=== PATIENT | female | born 2005 | race Caucasian/White ===

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

== ENCOUNTER 2025-07-25 20:44 | Emergency (ER) | payer OTHER, SELFPAY ==
--- NOTE | ~2025-07-25 | XR_ITS ---
CLINICAL HISTORY: constipation 1 view abdomen Comparison: None provided Findings: No pneumoperitoneum or pneumatosis. No abnormal calcifications. Mild colonic stool burden. No acute fractures. IMPRESSION: Mild colonic stool burden. This document has been electronically signed by: Berta Donnelly MD on 07/25/2025 22:45:15
--- NOTE | ~2025-07-25 | US_ITS ---
CLINICAL HISTORY: R adnexal pain r o torsion US pelvis transabdominal and transvaginal with Doppler Comparison: None provided Findings: Transabdominal scanning performed for overall anatomy. Transvaginal scanning performed for additional detail. Uterus measures 6.6 x 1.9 x 3.2 cm. There is no uterine mass. Endometrium is within normal limits measuring 1 mm in thickness. Right ovary measures 2.9 x 2.5 x 2.4 cm. There are small right ovarian follicles. There is no right adnexal mass or fluid collection. There is normal color Doppler and arterial/venous spectral tracings within the right ovary. Left ovary measures 2.5 x 2.7 x 2.1 cm. There are small left ovarian follicles. There is no left adnexal mass or fluid collection. There is normal color Doppler and arterial/venous spectral tracings within the left ovary. There is no free fluid in the pelvis. IMPRESSION: Unremarkable pelvic ultrasound. This document has been electronically signed by: Abelardo Jhaveri MD on 07/25/2025 23:46:33
[2025-07-25 20:47] VITALS: BP 113/56; PULSE 91; RESP 20; TEMP 36.7; O2SAT 100; BMI 33.2
[2025-07-25 21:38] LABS: MANUAL DIFF FLAG NO
[2025-07-25 21:39] LABS: Hematocrit 45.0 % (37.0-47.0); Hemoglobin 14.8 g/dl (12.0-16.0); Imm Gran Abs Auto 0.01 X10*3/uL (0.00-0.03); Imm Gran Pct Auto 0.1 % (0.0-0.4); Lymphocytes Absolute Auto 2.9 X10*3/uL (1.2-4.9); Mean Corpuscular HGB Conc 32.9 g/dl (31.0-35.0); Mean Corpuscular Hemoglobin 28.8 pg (27.0-33.0); Mean Corpuscular Volume 87.5 fL (80.0-98.0); NRBC Abs Auto 0.000 X10*3/uL (0.0-0.012); NRBC Pct Auto 0.0 /100WBC (0.0-0.2); Platelet Count 273 X10*3/uL (160-400); Red Blood Count 5.14 X10*6/uL (4.20-5.50); White Blood Count 9.0 X10*3/uL (4.8-10.8)
[2025-07-25 21:42] LABS: Appearance Urine Clear; Glucose Urine UA Negative (Negative); PH 5.5 (5.0-9.0); Specific Gravity - Urine 1.025 (1.005-1.025)
[2025-07-25 21:58] LABS: Alanine Aminotransferase 22 U/L (0-31); Albumin Level 5.1 g/dL (3.5-5.0); Alkaline Phosphatase 70 U/L (39-117); Anion Gap 10 (12-20); Aspartate Amino Transferase 25 U/L (5-31); Blood Urea Nitrogen 13 mg/dL (9-16); Calcium 9.7 mg/dL (8.4-10.2); Carbon Dioxide 27 mmol/L (22-29); Chloride 106 mmol/L (96-108); Creatinine Clr Calc Pharmacy 123.3; Estimated Glomerular Filt Rate > 60; Lipase 31 U/L (8-78); Potassium 3.3 mmol/L (3.3-5.1); Sodium 140 mmol/L (135-145); Total Protein 7.9 g/dL (6.5-8.0)
[2025-07-25 22:16] LABS: Resp Syncy Virus RNA Qual PCR NEGATIVE (Negative); SARS COV2 PCR INHOUSE NEGATIVE (Negative)
--- NOTE | 2025-07-25 22:22 | ED.ABDPAIN ---
HPI - Abdominal Pain General Chief Complaint: Abdominal Pain Stated Complaint: CRAMP Time Seen by Provider: 07/25/25 22:11 Source: patient Mode of arrival: ambulatory Limitations: no limitations History of Present Illness ED Provider: Dr. Li Velez HPI narrative: 20-year-old previously healthy female presents with constant lower abdominal pain that began three weeks ago, shortly after Thanksgiving. Initially associated with constipation; she took magnesium which produced a bowel movement and transient improvement. Bowel habits since have fluctuated?some days no stool, other days up to three bowel movements. Today had a soft, orange-tinted stool normal consistency, sfot. Current pain began as a cramp under the umbilicus, shifted to the right side, and is now rated 9/10 (8.5/10 on arrival). Pain is constant in the abdomen but intermittently radiates to the lower back. She has taken no analgesics due to concern about masking symptoms. Associated symptoms: intermittent nausea since a few days after Thanksgiving, chills without documented fever, amenorrhea x 5 months. Denies vomiting in last 24 h, dysuria, hematuria, vaginal bleeding, or abnormal vaginal discharge (reports normal physiologic discharge). 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 Prior transabdominal pelvic US ~1?1.5 years ago reportedly normal. No prior abdominal surgeries; appendix intact. Never . No drug allergies. Related Data Previous Rx's ?Medication ?Instructions ?Recorded erythromycin 5 mg/gram (0.5 %) eye 0.5 inch ophthalmic (eye) Q4H #3.5 05/01/22 ointment grams dicyclomine 20 mg tablet 20 mg PO TID #10 tabs 07/26/25 ibuprofen 600 mg tablet 600 mg PO Q8H PRN fever or pain 07/26/25 #30 tabs polyethylene glycol 3350 17 17 g PO DAILY #119 grams 07/26/25 gram/dose oral powder (Miralax) Allergies Allergy/AdvReac Type Severity Reaction Status Date / Time No Known Allergies Allergy Verified 07/25/25 20:50 Review of Systems Review of Systems as per HPI, full review of systems performed and negative but for the above mentioned pertinent positives and negatives. [facility] Social History Social History Alcohol intake: current Smoked in Last 30 Days: Yes Use of substances other than those prescribed or required for medical reasons: Yes Substance Use Type: Marijuana Advance Directives: No Advance Directives Information Provided: No Patient : No Physical Exam ED Exam Exam: GENERAL: Well-Appearing, conversant, no acute distress. SKIN: Normal skin color for ethnicity, warm, dry, no rashes noted. HEENT:? Normocephalic, atraumatic, no stridor, posterior oropharynx nonerythematous, dentition intact, EOMI. NECK: Soft, supple, full ROM, midline structures nontender, no step-offs, no deformities, no lymphadenopathy. CHEST: Heart regular rate and rhythm, no murmurs, symmetric chest rise and fall. PULMONARY: Clear to auscultation bilaterally, no labored breathing, no wheezes/rhales/rhonchi. ABDOMINAL: Soft, nondistended, bilateral adnexal tenderness to palpation with voluntary guarding, positive bowel sounds in all quadrants. : Deferred. MUSCULOSKELETAL: Normal tone, full range of motion, no deformities, no peripheral edema. NEURO: Alert and oriented x3, CN II through XII intact, equal strength and sensation bilateral upper and lower extremities, no focal neurologic deficits.? PSYCHIATRIC: Normal affect, fluid speech, good eye contact and appropriate demeanor. Vital Signs: Vital Signs - 24 hr 07/25/25 20:47 07/25/25 23:24 Temperature 98.1 F Pulse Rate 91 70 Respiratory Rate 20 18 Blood Pressure 113/56 L 104/55 L Pulse Oximetry 100 98 Oxygen Delivery Method Room Air Room Air BMI result Body Mass Index 33.2 Medical Decision Making Medical Decision Making MDM Narrative: 20-year-old female with 3-week history of constant lower abdominal pain, intermittent constipation, amenorrhea, and lower abdominal tenderness. Differential diagnosis is broad and would include ovarian torsion or cyst related to PCOS, PID, TOA, if ectopic , pyelonephritis, kidney stone, UTI, less likely appendicitis given duration and reassuring labs, among many others. A broad-based workup based on history and physical exam was obtained. Problem #1: Abdominal pain, undifferentiated Assessment: Constant lower abdominal pain with bilateral lower quadrant tenderness, no fever, normal labs. Need to exclude gynecologic causes. Plan: - Administer analgesia in ED (medication given ? specifics not recorded in transcript). - Pelvic ultrasound (transvaginal preferred) to evaluate ovaries and blood flow, rule out torsion. - Monitor symptoms; patient instructed to report increased pain, fever, or worsening nausea immediately while in ED. Problem #2: Constipation Assessment: Intermittent constipation since Thanksgi; bowel movements fluctuate. Current stool soft without impaction on imaging. Plan: - Patient previously used magnesium with partial relief. - initiate bowel regimen Problem #3: Amenorrhea / PCOS Assessment: Amenorrhea for 5 months in setting of known PCOS; last pelvic US ~1 year ago normal. Plan: - Pelvic ultrasound will also provide updated assessment of ovaries in context of PCOS. - Counseled patient that transvaginal imaging offers superior visualization. Disposition pending ultrasound results and response to therapy. Patient was given ibuprofen and dicyclomine for pain control. Symptoms improved dramatically. Imaging does not show evidence of ovarian torsion. X-ray does not show any sign of calcifications or significant stool impaction. Suspect gas pain/perhaps early menstrual cramping. Using shared decision making, plan for discharge home to follow-up with primary care and/or specialist. Patient understands and agrees with plan for discharge. Discharged home in stable condition. Differential Diagnosis Differential Diagnoses: The differential diagnosis associated with the presentation includes (As above) Admission/Observation Consideration of admission/observation: Escalation of care including admission/observation considered Lab Data MDM Lab Attestation statement: I reviewed the patient's lab results. 07/25/25 21:30 07/25/25 21:30 Labs: Lab Results 07/25/25 Range/Units 21:30 WBC 9.0 (4.8-10.8) X10*3/uL RBC 5.14 (4.20-5.50) X10*6/uL Hgb 14.8 (12.0-16.0) g/dl Hct 45.0 (37.0-47.0) % MCV 87.5 (80.0-98.0) fL MCH 28.8 (27.0-33.0) pg MCHC 32.9 (31.0-35.0) g/dl RDW 12.4 (11.0-16.0) % Plt Count 273 (160-400) X10*3/uL MPV 9.5 (9.4-12.3) fL Immature Gran % (Auto) 0.1 (0.0-0.4) % Neut % (Auto) 61.1 (45-73) % Lymph % (Auto) 32.4 (20-40) % Bledsoe % (Auto) 5.6 (2-11) % Eos % (Auto) 0.7 (0-4) % Baso % (Auto) 0.1 (0-2) % Lymph # (Auto) 2.9 (1.2-4.9) X10*3/uL B[place]soe # (Auto) 0.5 (0.1-1.2) X10*3/uL Eos # (Auto) 0.1 (0.0-0.4) X10*3/uL Baso # (Auto) 0.0 (0.0-0.2) X10*3/uL Abs Immat Gran (auto) 0.01 (0.00-0.03) X10*3/uL Absolute Neuts (auto) 5.5 (2.0-8.3) x10*3/uL Absolute Nucleated RBC 0.000 (0.0-0.012) X10*3/uL Nucleated RBC % (auto) 0.0 (0.0-0.2) /100WBC Sodium 140 (135-145) mmol/L Potassium 3.3 (3.3-5.1) mmol/L Chloride 106 (96-108) mmol/L Carbon Dioxide 27 (22-29) mmol/L Anion Gap 10 L (12-20) BUN 13 (9-16) mg/dL Creatinine 0.78 (0.5-1.4) mg/dL Estim Creat Clear Calc 123.3 Estimated GFR > 60 Random Glucose 104 (60-115) mg/dL Calcium 9.7 (8.4-10.2) mg/dL Total Bilirubin 0.3 (0.0-1.0) mg/dL AST 25 (5-31) U/L ALT 22 (0-31) U/L Alkaline Phosphatase 70 (39-117) U/L Total Protein 7.9 (6.5-8.0) g/dL Albumin 5.1 H (3.5-5.0) g/dL Lipase 31 (8-78) U/L Beta HCG, Quant < 2 mIU/mL Urine Color Yellow Urine Appearance Clear Urine pH 5.5 (5.0-9.0) Ur Specific [place] 1.025 (1.005-1.025) Urine Protein Negative (Neg-Trace) mg/dL Urine Glucose (UA) Negative (Negative) mg/dL Urine Ketones Trace (Negative) mg/dL Urine Blood Negative (Negative) Urine Nitrite Negative (Negative) Ur Leukocyte Esterase Negative (Negative) Influenza Type A (PCR) NEGATIVE (Negative) Influenza Type B (PCR) NEGATIVE (Negative) RSV RNA Qual (PCR) NEGATIVE (Negative) SARS-CoV-2 RNA (RT-PCR) NEGATIVE (Negative) Radiology Impression Discussion of test interpretation with radiology: I have reviewed the radiologist's reading. Independent Historian Clinical information obtained from an independent historian. History obtained from or confirmed by: Spouse External Record Review External record reviewed: Inpatient record Prescription Management I considered prescription management with: Pain Medication and Other (Laxatives) Chronic Conditions Patient?s care impacted by: Other (PCOS) Social Determinants Patient?s care significantly limited by Social Determinants of Health including: Other Social Determinant of Health Medications Administered Discontinued Medications Generic Name Dose Route Start Last Admin Trade Name Saida PRN Reason Stop Dose Admin Dicyclomine HCl 20 mg 07/25/25 23:29 07/25/25 23:37 Dicyclomine Hcl 10 Mg Capsule PO 07/25/25 23:30 20 mg ONCE ONE Administration Ibuprofen 600 mg 07/25/25 23:29 07/25/25 23:37 Ibuprofen 600 Mg Tablet PO 07/25/25 23:30 600 mg ONCE ONE Administration Ondansetron HCl 4 mg 07/25/25 23:29 07/25/25 23:37 Ondansetron Odt 4 Mg Tab.Rapdis TRANSLINGU 07/25/25 23:30 4 mg ONCE ONE Administration Discharge Plan Discharge Clinical Impression: Constipation, Acute suprapubic pain, History of PCOS Patient Disposition: Home, Self-Care Instructions: Constipation (ED), Pelvic Pain in Women (ED) Additional Instructions: Constipation Remedy 1 Lb prunes 1 Lb pitless dates 1 Lb raisins 16 teabags Smooth Move tea brewed in 2 cups water 1 Cup brown sugar 1 Cup lemon juice Mix in a feed blender Put in freezer (never completely freezes) Can be used as a spread on crackers, toast, etc. (about 1-2 tablespoons per dose) DIAGNOSIS & TREATMENT: You were seen in the Emergency Department for your abdominal pain. We performed laboratory work and an ultrasound of your pelvis which did not reveal any acute abnormalities that would explain your symptoms. FURTHER CARE: We have not found any emergent physical exam or lab abnormalities that would require admission to the hospital today. Many people who come to the ER with abdominal pain do not leave with a specific diagnosis at the end of their visit. In the Emergency Department we try to make sure that there is no emergent problem that needs surgery or antibiotics right now. This does not mean that your evaluation is complete--please be sure to follow up with your regular doctor as additional testing as an outpatient may be indicated Please be certain to drink plenty of fluids over the next several. You should advance your diet as tolerated. You may wish to start with the BRAT diet (bananas, rice, applesauce, toast). WHEN YOU SHOULD BE SEEN NEXT: Please follow-up with your primary care provider within the next 2-3 days for reevaluation of your symptoms. WHEN TO RETURN TO THE ED: Monitor your symptoms closely and return to the emergency department immediately for any new/worsening symptoms, worsening abdominal pain, pain which changes location (particularly if it moved to the right lower quadrant), nausea, vomiting, blood in your stool, black/tarry stools, chest pain, shortness of breath, fevers, chills, night sweats, you are unable to arrange follow-up care, or any other concerning symptoms. Prescriptions: New dicyclomine 20 mg tablet 20 mg PO TID Qty: 10 0RF ibuprofen 600 mg tablet 600 mg PO Q8H PRN (Reason: fever or pain) Qty: 30 0RF polyethylene glycol 3350 [Miralax] 17 gram/dose powder 17 g PO DAILY Qty: 119 0RF No Action erythromycin 5 mg/gram (0.5 %) ointment 0.5 inch ophthalmic (eye) Q4H Qty: 3.5 0RF Print Language: Azerbaijani
--- OUTSIDE RECORDS SUMMARY | 2025-07-25 22:55 | XMS_ITS | Clinical Summary ---
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 Do not crush or chew. 12 capsule 08/07/2024 Active Active Problems No known active problems Family History Medical History Relation Name Comments Breast cancer Neg Hx Cancer of Small Bowel Neg Hx Colon cancer Neg Hx Kidney cancer Neg Hx Ovarian cancer Neg Hx Pancreatic cancer Neg Hx Uterine cancer Neg Hx Social History Tobacco Use Types Packs/Day Years Used Date Smoking Tobacco: Some Days Smokeless Tobacco: Current Tobacco Cessation:Ready to Q uit: Not Asked; Counseling Given: Not Answered Alcohol Use Standard Drinks/Week Comments Yes 0 (1 standard drink = 0.6 oz pur e alcohol) Comments Unknown Sex and Gender Information Value Date Recorded Sex Assigned at Not on file Legal Sex Female 9:08 AM EST Gender Identity Not on file Sexual Orientation Not on file Last Filed Vital Signs Vital Sign Reading Time Taken Comments Blood Pressure 87/51 03/17/2025 9:47 AM EDT Pulse 61 03/17/2025 9:47 AM EDT Temperature 36.2 C (97.2 F) 08/07/2024 11:19 AM EST Respiratory Rate 13 03/17/2025 9:47 AM EDT Oxygen Saturation 98% 08/07/2024 11:19 AM EST Inhaled Oxygen Concentration - - Weight 88.5 kg (195 lb) 03/17/2025 9:47 AM EDT Height 162.6 cm (5' 4 ) 03/17/2025 9:47 AM EDT Body Mass Index 33.47 03/17/2025 9:47 AM EDT Plan of Treatment Upcoming Encounters Date Type Department Care Team (Late st Contact Info) Description 08/25/2025 9:00 AM EST Office Visit Endocrinology - [place] [address] [place] [address] Maribell Salcido PA [address] [place] [address] Health Maintenance Due Date Last Done Comments Pneumococcal Vaccine: Pediatrics (0 to 5 Years) and At-Risk Patients (6 to 49 Years) (1 of 1 - PPSV23, PCV20, or PCV21) 2011 04/15/2006, 2005, 2005, Additional history exists Meningococcal B Vaccine (1 of 2 - Standard) 2021 HIV Screening 09/09/2023 Hepatitis C Screening 09/09/2023 Social Influencers of Health Screening 09/09/2023 Depression Screening 08/11/2024 Gonorrhea/Chlamydia Screening 09/11/2024 09/11/2023 Annual Well Child Visit (3-21 years old) 11/16/2024 11/17/2023, 09/11/2023, 06/17/2022, Additional history exists COVID-19 Vaccine (1 - 2024- season) 2025 Influenza Vaccine (#1) 2025 , 06/17/2022, 05/16/2021, Additional history exists Cholesterol Screening (Lipid Panel) 12/09/2025 12/09/2020 DTaP,Tdap,and Td Vaccines (7 - Td or Tdap) 08/23/2026 08/23/2016, 10/25/2009, 07/21/2006, Additional history exists RSV Immunization Adult Patients (1 - 1-dose 75+ series) 01/06/2080 Hepatitis B Vaccines Completed 2005, 2005, 2005, Additional history exists HIB Vaccines Completed 04/15/2006, 01/2005, 2005, Additional history exists IPV Vaccines Completed 10/25/2009, 01/2005, 2005, Additional history exists MMR Vaccines Completed 10/25/2009, 01/07/2006 Varicella Vaccines Completed 10/25/2009, 01/07/2006 HPV Vaccines Completed 04/04/2020, 07/30/2019 Hepatitis A Vaccines Completed 05/16/2021, 04/04/20 Meningococcal ACWY Vaccine Completed 05/16/2021, RSV Immunization Patients Under 20 months Aged Out No longer eligible based on patient's age to complete this topic Procedures Procedure Name Priority Date/Time Associated Diagnosis Comments GONORRHEA/CHLAMYDIA SCRREENING Routine 09/11/2023 from Last 3 Months or Most Recently Relevant to Health Maintenance Results * Gonorrhea/Chlamydia Screening (09/11/2023) HM Gonorrhea/Chla mydia Screening Abstracted us Historical Provider MD HEALTH MAINTENANCE Final Result from Last 3 Months or Most Recently Relevant to Health Maintenance Insurance [facility] [employer] Care Teams 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
--- OUTSIDE RECORDS SUMMARY | 2025-07-25 22:55 | XMS_ITS | Data Portability ---
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 Plan of Treatment Reminders Order Date Submit Date Provider Last Modified By Organization Details Last Modified Time Details Appointments None recorded. Lab urinalysis, dipstick 2023 024 [email or web address] [address], [address] [place], [address], 17:17:52 Referral None recorded. Procedures None recorded. Surgeries None recorded. Imaging None recorded. Medication Orders ondansetron 4 mg disintegrat ing tablet [address] [facility]/Pharmacy #[id number], [address] [place], [address], 17:17:54 famotidine 20 mg tablet [address]23 [address] [facility]/Pharmacy #[id number], [address] [place], [address], 17:17:54 Patient TargetsNo targets recorded. Patient Instructions Encounter Date Encounter Id Patient Instructions Last Modified By Organization Details Last Modified Time 02/14/2024 [id number] nausea and vomiting: care instructions [email or web address] Not available 02/14/2024 17:17:52 Try small amount s of clear liquids frequently. If vomiting occurs, wait 30-60 minutes before trying clear liquids again. Once you are able to tolerate clear liquids for at least 6 hours without vomiting, you can advance to a soft diet consisting of foods such as bananas, rice, applesauce, toast, crackers, and other foods rich in carbohydrates and low on fats and spices. If the diet is tolerated for 12-24 hours, you can slowly add other foods to your diet. If vomiting occurs, you should go back to clear liquids only and work your way back to a normal diet as outlined above. If much worse, you should seek treatment immediately. Not available 02/14/2024 16:57:20 Reason for Referral None Reported. Results Created Date Observation Date Name Description Value Unit Range Abnormal Flag Note LastModifiedBy Organization Detail LastModifiedTime 02/14/20 24 02/14/2024 urina lysis , dipst ick Unknown Analyte Normal = light yellow Not Available [address] [place], [address], 02/14/2024 17:05:09 02/14/20 24 02/14/2024 urina lysis , dipst ick Unknown Analyte Normal = clear Not Available [address] [place], [address], 02/14/2024 17:05:09 02/14/20 24 02/14/2024 urina lysis , dipst ick Unknown Analyte Normal = negati ve Not Available [address] [place], [address], 02/14/2024 17:05:09 02/14/20 24 02/14/2024 urina lysis , dipst ick Unknown Analyte Normal = Negati ve Not Available [address] [place], [address], 02/14/2024 17:05:09 02/14/20 24 02/14/2024 urina lysis , dipst ick Unknown Analyte Normal = Negati ve Not Available [address] [place], [address], 02/14/2024 17:05:09 02/14/20 24 02/14/2024 urina lysis , dipst ick Unknown Analyte Normal = 1.010, 1.015, 1.020 Not Available [address] [place], [address], 02/14/2024 17:05:09 02/14/20 24 02/14/2024 urina lysis , dipst ick Unknown Analyte Normal = Negati ve Not Available [address] [place], [address], 02/14/2024 17:05:09 02/14/20 24 02/14/2024 urina lysis , dipst ick Unknown Analyte Normal = 6.5, 7.0, 7.5, 8.0 Not Available [address] [place], [address], 02/14/2024 17:05:09 02/14/20 24 02/14/2024 urina lysis , dipst ick Unknown Analyte Normal = Negati ve Not Available [address] [place], [address], 02/14/2024 17:05:09 02/14/20 24 02/14/2024 urina lysis , dipst ick Unknown Analyte Normal = 0.2, 1.0 Not Available [address] [place], [address], 02/14/2024 17:05:09 02/14/20 24 02/14/2024 urina lysis , dipst ick Unknown Analyte Normal = Negati ve Not Available [address] [place], [address], 02/14/2024 17:05:09 02/14/20 24 02/14/2024 urina lysis , dipst ick Unknown Analyte Normal = Negati ve Not Available [address] [place], [address], 02/14/2024 17:05:09 02/14/20 24 02/14/2024 urina lysis , dipst ick Unknown Analyte Negati ve Not Available [address] [place], [address], 02/14/2024 17:05:09 02/14/20 24 02/14/2024 urina lysis , dipst ick Unknown Analyte Negati ve Not Available [address] [place], [address], 02/14/2024 17:05:09 02/14/20 24 02/14/2024 urina lysis , dipst ick Unknown Analyte Yellow Not Available [address] [place] [address] [address] [place], [address], 02/14/2024 17:05:09 02/14/2002/14/2024 urina lysis , dipst ick Unknown Analyte Clear Not Available [address] [place] [address] [address] [place], [address], 02/14/2024 17:05:09 02/14/20 24 02/14/2024 urina lysis , dipst ick Unknown Analyte Negati ve Not Available [address] [place], [address], 02/14/2024 17:05:09 02/14/20 24 02/14/2024 urina lysis , dipst ick Unknown Analyte 1.025 Not Available [facility] [address] [place], [address], 02/14/2024 17:05:09 02/14/20 24 02/14/2024 urina lysis , dipst ick Unknown Analyte Small Not Available [address] [facility] [address] [place], [address], 02/14/2024 17:05:09 02/14/20 24 02/14/2024 urina lysis , dipst ick Unknown Analyte 7.0 Not Available [address] [place] [address] [address] [place], [address], 02/14/2024 17:05:09 02/14/20 24 02/14/2024 urina lysis , dipst ick Unknown Analyte Negati ve Not Available [address] [place], [address], 02/14/2024 17:05:09 02/14/20 24 02/14/2024 urina lysis , dipst ick Unknown Analyte 1.0 E.U./d L Not Available [address] [place], [address], 02/14/2024 17:05:09 02/14/20 24 02/14/2024 urina lysis , dipst ick Unknown Analyte Negati ve Not Available [address] [place], [address], 02/14/2024 17:05:09 02/14/20 24 02/14/2024 urina lysis , dipst ick Unknown Analyte Negati ve Not Available [address] [place], [address], 02/14/2024 17:05:09 Result Notes None recorded. Problems No Known Problems Medical Equipment None Reported. Medications Name Sig Start Date Stop Date Status Note LastModified by Organization Details LastModified Time amoxicillin 500 mg capsule TAKE 1 CAPSULE BY MOUTH 3 TIMES A DAY UNTIL FINISHED 02/13 completed Not Available Not Available Not Available nicotine (polacrilex ) 2 mg gum CHEW 1 EACH (2 MG TOTAL) NEEDED FOR SMOKING CESSATION . 02/13 completed Not Available Not Available Not Available benzonatate 200 mg capsule TAKE 1 CAPSULE BY MOUTH 3 TIMES A DAY NEEDED FOR COUGH NOT COVERED 02/13 completed Not Available Not Available Not Available acetaminoph en 500 mg tablet TAKE 1 TABLET BY MOUTH EVERY 4-6 HOURS NEEDED FOR FEVER OR PAIN 02/13 completed Not Available Not Available Not Available famotidine 20 mg tablet Take 1 tablet twice a day by oral route for 14 days. 2023 active Not Available Not Available Not Avai lable trazodone 100 mg tablet TAKE 1 TABLET BY MOUTH EVERY DAY AT NIGHT 02/13 completed Not Available Not Available Not Available benzonatate 100 mg capsule TAKE 1 CAPSULE BY MOUTH THREE TIMES A DAY NEEDED FOR COUGH 02/13 completed Not Available Not Available Not Available ibuprofen 400 mg tablet TAKE 1 TO 2 TABLETS BY MOUTH EVERY 6 TO 8 HOURS NEEDED FOR PAIN 02/13 completed Not Available Not Available Not Available nicotine 21 mg/24 hr daily transdermal patch APPLY ONE PATCH TO SKIN DAILY FOR 6 WEEKS 02/13 completed Not Available Not Available Not Available ibuprofen 600 mg tablet TAKE 1 TABLET BY MOUTH EVERY 6-8 HOURS NEEDED FOR PAIN 02/13 completed Not Available Not Available Not Available ondansetron 4 mg disintegrat ing tablet Place 1 tablet 3 times a day by transling ual route for 5 days. 2023 active Not Available Not Available Not Avai lable duloxetine 60 mg capsule,del ayed release TAKE 1 CAPSULE BY MOUTH EVERY DAY 02/13 completed Not Available Not Available Not Available duloxetine 40 mg capsule,del ayed release TAKE 1 CAPSULE BY MOUTH EVERY DAY 02/13 completed Not Available Not Available Not Available Vitals Date Recorded Body height Body mass index (BMI) [Percentile] Per age and sex Body mass index (BMI) Body weight Respiratory rate Pain severity - 0-10 verbal numeric rating [Score] - Reported Oxygen saturation Heart rate Body temperature Systolic And Diastolic Provider Name and Address Organization Details Last Updated DateTime 162.56 cm 95 % 30.9 kg/m2 43482.6 3 g 18 /min 8 98 % 103 /min 98.1 [degF] 100/67 mm[Hg] Nadia aY PA - [facility] 17:04:57 Social History Question Answer Notes LastModified by Organizat ion Details LastModified Time Tobacco Smoking Status Never Smoker Nadia tijerina PA - [facility] 02/14/2024 17:01:58 What Is The Highest Grade Or Level Of School You Have Completed Or The Highest Degree You Have Received? [id number] [email or web address] Information not available 02/14/2024 Have You Had A Flu Shot This Season? Yes [email or web address] Information not available 02/14/2024 If No, Would You Like A Flu Shot Today? No [email or web address] Information not available 02/14/2024 Have You Had Direct Contact, Or Contact During Intimacy, With Monkeypox Rash, Scabs, Or Body Fluids From A Person With Monkeypox? No [email or web address] Information not available 02/14/2024 What Was The Date Of Your Most Recent Tobacco Screening? 02/14/2024 [email or web address] Information not available 02/14/2024 Have You Recently Traveled Abroad? No [email or web address] Information not available 02/14/2024 Are You Currently In School? No [email or web address] Information not available 02/14/2024 Sex: Unknown Functional Status Question Answer Note LastModified by Organizat ion Details LastModified Time How many times per week do you consume alcohol? Less than 1 time per week [email or web address] Information not available 02/14/2024 Do you use any illicit or recreational drugs? No [email or web address] Information not available 02/14/2024 Do you or have you ever used any other forms of tobacco or nicotine? Yes [email or web address] Information not available 02/14/2024 What is your level of alcohol consumption? Occasional [email or web address] Information not available 02/14/2024 Do you or have you ever used smokeless tobacco? Never used smokeless tobacco [email or web address] Information not available 02/14/2024 Are you currently employed? Yes [email or web address] Information not available 02/14/2024 Do you or have you ever used e-cigarettes or vape? Current user of electronic cigarettes Information not available 02/14/2024 Mental Status None recorded. Family History Relationship Description Onset Age of this Age Resolved Age Notes LastModified by Organization Details LastModified Time Father No current problems or disability [email or web address] Not available 01/2024 17:01:15 Mother No current problems or disability [email or web address] Not available 01/2024 17:01:15 Medical History No medical history recorded. Gynecological History Statement/Question Response Date of LMP 02/07/2024 Is there any chance of ? No LMP Approximate Obstetrics History GPAL:G 0 P 0 0 0 0 Past Encounters Encounter ID Performer Location Encounter Start Date Encounter Closed Date Diagnosis/Indication Diagnosis SNOMED-CT Code Diagnosis ICD10 Code Diagnosis IMO Codes Diagnosis Note [id number] [facility] [address] [place] [address] 10/19/2021 10:23:06 10/19/2021 11:55:05 [id number] [facility] [address] [place] [address] 01/18/2022 09:21:24 01/18/2022 10:24:57 [id number] [facility] [facility] [address] [place] [address] 11/01/2021 15:26:14 11/01/2021 17:11:48 [id number] [facility] [address] [place] [address] 02/14/2024 16:50:55 02/14/2024 17:20:17 Acute gastroenteritis [id number] K52.9 Based on you exam and presentati on I am diagnosing you with a viral gastroente ritis. This should resolve on its own without any interventi on in 1-5 days. This may be contagious to try and avoid family members while you are sick. Use a seperate bathroom if possible. These are my recommenda tions to help with your symptoms and help you recover:1. Drink plenty of fluid and stay hydrated.2 . Wash hands and home surfaces regularly. 3. Do not share food or drinks4. Try to eat foods like toast, chicken broth, bananas.5. Stay away from Gatorade, but you can drink pedialyte, soda, or water.6. Avoid Dairy I would be seen again if you develop:1. Severe abdominal pain2. Vomiting more than 48 hours3. Fever > 101.04. Blood in Stool5. Blood in Urine. Thank you for using [facility] , please feel free to contact us if you have any questions or concerns. Health Concerns Section Related Observation LastModified by Organization Detai ls LastModified Time None Recorded Concern Status LastModified by Organization Details LastModified Time None Recorded Advance Directives Directive None Recorded Payers Insurance Date Sequence Insurance Name Policy Number Policy Pitts Covered Member ID Pitts Member ID Guarantor Name 02/15/2024 1 [facility] (MEDICAID REPLACEMENT - HMO) Brie Andino [id number] Corin Butt 02/14/2024 1 [facility] WITH [facility] (MEDICAID HMO) [id number] Devi Andino [id number] [facility] Notes Date Note Type Note Provider Name and Address Organization Details Recorded Time 02/14/2024 text/html 19 y/o female here with 3 days of nausea, several episodes of vomiting, and several days of diarrhea x 4 per day. NAHUN Miguel [address] [place], [address], [place] - [facility] 02/14/2024 17:20:47 OBGyn Episode No OBEpisode recorded.
[2025-07-25 23:24] VITALS: BP 104/55; PULSE 70; RESP 18; O2SAT 98
[2025-07-26 00:54] VITALS: BP 92/54; PULSE 56; RESP 20; TEMP 36.7; O2SAT 98
[2025-07-26 01:22] VITALS: BP 92/54; PULSE 56; RESP 20; TEMP 36.7; O2SAT 98
== END 2025-07-26 01:24 | disposition home or self-care (01) ==
PROVIDERS: Emergency Provider Emergency Medicine; PCP Nurse Practitioner Family
DX: K59.00 Constipation, unspecified (principal); R10.24 Suprapubic pain; E28.2 Polycystic ovarian syndrome; Z03.818 Encounter for observation for suspected exposure to other biological agents ruled out
CPT/HCPCS: 74018; 76830; 76856; 80053; 81003; 83690; 84702; 85025; 87637; 93975; 99284

== ENCOUNTER → 2025-07-25 21:15 | Outpatient (BNV) | payer OTHER, SELFPAY | PROVIDERS: Emergency Provider Emergency Medicine; PCP Nurse Practitioner Family; Visit Provider Student in an Organized Health Care Education/Training Program | DX: N83.01 Follicular cyst of right ovary (principal); N83.02 Follicular cyst of left ovary; R10.20 Pelvic and perineal pain unspecified side | CPT/HCPCS: 76830; 76856 ==